=== PATIENT | female | born 1995 ===

== ENCOUNTER 2020-08-12 17:23 | Outpatient (CLI) | payer OTHER ==
[~2020-08-12] VITALS: Ht 154.9 cm; Wt 72.7 kg
[2020-08-12] MEDS ORDERED: PRENATAL TABLET PO (18:22)
[2020-08-12] MEDS ORDERED: ZOFRAN8 MG PO (18:23)
[2020-08-12 19:15] VITALS: BP 104/69; PULSE 117; TEMP 98.1
[2020-08-12 19:57] LABS: COLLECTION METHOD CLEAN CATCH
[2020-08-12 20:11] LABS: MUCOUS Present /lpf; PH 5 (5-8); URINE APPEARANCE Hazy; URINE BACTERIA None Seen /hpf; URINE BILIRUBIN Negative (NEGATIVE); URINE BLOOD Negative (NEGATIVE); URINE COLOR Amber; URINE GLUCOSE Negative (NEGATIVE); URINE KETONE 2+ (NEGATIVE); URINE LEUKOCYTE ESTERASE Trace (NEGATIVE); URINE NITRATE Negative (NEGATIVE); URINE PROTEIN(semi-quant) 1+ (NEGATIVE); URINE UROBILINOGEN >=4.0 mg/dL (NEGATIVE)
[2020-08-12 20:15] VITALS: BP 114/60; PULSE 96
[2020-08-12 21:20] VITALS: BP 115/69; PULSE 100
== END 2020-08-12 21:20 | disposition home or self-care (01) ==
LOC: LDRO 17:23
PROVIDERS: Obstetrics & Gynecology
DX: O21.9 Vomiting of pregnancy, unspecified (principal); Z3A.00 Weeks of gestation of pregnancy not specified
CPT/HCPCS: J2405; J7120